=== PATIENT | female | born 1945 | race Caucasian/White ===

== ENCOUNTER 2017-05-05 03:54 | Outpatient (CLI) | payer MEDICARE | END 2017-05-05 03:55 | disposition home or self-care (01) | LOC: BICULT 03:54 | PROVIDERS: ATTEND Internal Medicine | DX: N63.10 Unspecified lump in the right breast, unspecified quadrant (principal) ==

== ENCOUNTER 2019-05-17 11:19 | Outpatient (CLI) | payer MEDICARE ==
--- NOTE | 2019-05-17 13:50 | MRI ---
MRI LUMBAR SPINE WITHOUT CONTRAST: HISTORY: Low back pain. Right hoffmann and hip pain. COMPARISON: None. FINDINGS: Slightly heterogeneous T1 marrow signal intensity of the lumbar vertebrae, likely due to senescent ch victorino. No fracture. No malalignment. No spondylolisthesis or spondylolysis. No significant STIR hyperintensity to suggest vertebral body edema or ligamentous injury Appropriate signal intensity of the paraspinal muscles and visualized solid organs. The conus medullaris terminates at the inferior aspect of L1. T12-L1: No significant central canal stenosis or significant neural foraminal narrowing. L1-L2: Mild loss of disc space height with minimal left and right paracentral disc bulges. No signifi cant central canal stenosis. Mild right neural foraminal narrowing. Left neural foramen is minimally narrowed. L2-L3: Adequate disc hydration. Minimal broad-based disc bulge, minimal ligament flavum thickening an d facet hypertrophy result in minimal central canal stenosis. Minimal encroachment upon both subarticular zones due to disc material. There is mass effect without obscuration of either traversin g L3 nerve root. Mild right foraminal narrowing. Mild to moderate left foraminal narrowing. Schmorl's node is noted at the inferior endplate of L2. L3-L4: Disc desiccation with mild loss of disc space height. No significant central canal stenosis. R ight neural foramen is patent. Mild left foraminal narrowing. L4-L5: Adequate disc hydration. No significant posterior disc abnormality. No significant central can al stenosis. There is a T1 intense, T2 isointense lesion in the right neural foramen. This lesion may be intrinsic to the foraminal right L4 nerve root. On axial images this lesion measures ap proximately 0.8 cm. Mild to moderate bilateral foraminal narrowing. L5-S1: Disc desiccation without significant loss of disc space height. Broad-based disc bulge minimal ly contacts the thecal sac. No significant central canal stenosis. Mild bilateral foraminal narrowing. IMPRESSION: Abnormal soft tissue signal intensity in the right neural foramen at L4-L5 which may be intrinsic to the foraminal right L4 nerve root. Findings may represent edematous change, however there is only mild to moderate foraminal narrowing. An intrinsic lesion cannot be excluded. Post contrast imaging i s recommended CODE T Transcribed Date/Time: 05/17/2019 2:16 PM
== END 2019-05-17 11:20 | disposition home or self-care (01) ==
LOC: MRI 11:19
PROVIDERS: ATTEND Physical Medicine & Rehabilitation
DX: M54.5 Low back pain (principal); M79.606 Pain in leg, unspecified; R53.1 Weakness; M48.061 Spinal stenosis, lumbar region without neurogenic claudication
CPT/HCPCS: 72148

== ENCOUNTER 2019-06-06 13:09 | Outpatient (CLI) | payer MEDICARE ==
--- NOTE | 2019-06-06 16:03 | MRI ---
MRI LUMBAR SPINE WITH AND WITHOUT CONTRAST: INDICATIONS: Followup to MRI of 05/17/2019, which revealed an extradural lesion on the right at L4-L5, extending i nto the right foramina at this level. FINDINGS: Exam again confirms abnormal mass-like signal in the spinal canal on the right at L4-L5, extending in to the right foramina. Post contrast images show significant rim enhancement. There is an internal ce ntral portion which does not enhance. Findings appear most consistent with sequestered disk material, probably originating from the L4-L5 disk with slight superior migration and extension into the right foramina. This does appear to displace the exiting right L4 nerve root. IMPRESSION: Abnormal signal seen in the spinal canal on the right at L4-L5, extending into the foramina appears t o represent sequestered disk fragment with superior extension from the L4-L5 disk and foraminal exten ora at this level on the right. POS: DIAMOND
[2019-06-06] MEDS ORDERED: Magnevist 469MG/ML 20 ML VIAL ONE (16:32)
== END 2019-06-06 13:10 | disposition home or self-care (01) ==
LOC: BICMRI 13:09
PROVIDERS: ATTEND Specialist
DX: M51.16 Intervertebral disc disorders with radiculopathy, lumbar region (principal); R93.7 Abnormal findings on diagnostic imaging of other parts of musculoskeletal system
CPT/HCPCS: 72158; A9579

== ENCOUNTER 2019-08-05 07:52 | Day surgery (SDC) | payer MEDICARE ==
[2019-08-04 09:59] VITALS: BMI 25.7
[2019-08-05 08:18] LABS: #Basophils 0.1 thou/uL (0.0-0.2); #Eosinphils 0.2 thou/uL (0.0-0.7); #Lymphocytes 3.5 thou/uL (1.20-3.40); #Monocytes 0.7 thou/uL (0.11-0.59); #Neutrophils 2.8 thou/uL (1.40-6.50); %Basophils 1.5 % (0.0-1.0); %Eosinophils 2.5 % (0.0-10.0); %Lymphocytes 47.9 % (21.0-51.0); %Monocytes 9.1 % (0.0-10.0); Hemoglobin 13.2 g/dL (12.0-16.0); Mean Corpuscular HGB CONC 31.7 g/dL (32.0-36.0); Mean Corpuscular Hemoglobin 28.4 pg (27.0-31.0); Mean Corpuscular Volume 89.5 fL (78.0-98.0); Mean Platelet Volume 7.2 fL (7.4-10.4); Platelet Count 296 thou/uL (130-400); RBC Distribution Width 12.3 % (11.5-14.5); Red Blood Cell (RBC) Count 4.65 mill/uL (4.20-5.40); White Blood Cell (WBC) Count 7.2 thou/uL (4.8-10.8)
[2019-08-05 08:24] LABS: INR-International Normal Ratio 0.9; Prothrombin Time 12.1 SEC (12.0-14.7)
[2019-08-05 08:25] LABS: PTT 28.1 SEC (22.9-36.1)
[2019-08-05 08:36] LABS: Anion Gap 12 mmol/L (10-20); BUN (Urea Nitrogen) 22 mg/dL (9.8-20.1); Calc. Creatinine Clearance 63 mL/min (70-130); Calcium 10.2 mg/dL (7.8-10.44); Carbon Dioxide 29 mmol/L (23-31); Chloride 105 mmol/L (98-107); Estimated GFR-MDRD 69; Glucose 109 mg/dL (83-110); Potassium 4.6 mmol/L (3.5-5.1); Sodium 141 mmol/L (136-145)
[2019-08-05] MEDS ORDERED: Sodium Chloride 0.9% 10 ML ONE (09:02)
[2019-08-05] MEDS ORDERED: Thrombin 5000 UNITS/5 ML VIAL ONE (09:02)
[2019-08-05] MEDS ORDERED: Rocuronium Bromide 10 MG/ML (10ML VIAL) ONE (09:19)
[2019-08-05] MEDS ORDERED: EPHEDRINE 25 MG/5 ML SYRINGE ONE (09:19)
[2019-08-05] MEDS ORDERED: Ondansetron PF 4 MG/2 ML Vial ONE (09:19)
[2019-08-05] MEDS ORDERED: Lidocaine 1% PF 5 ML VIAL ONE (09:19)
[2019-08-05] MEDS ORDERED: PHENYLEPHRINE-NS 100 MCG/ML 10 ML SYRINGE ONE (09:19)
[2019-08-05] MEDS ORDERED: PROPOFOL 200 MG/20 ML VIAL ONE (09:19)
[2019-08-05] MEDS ORDERED: Dexamethasone 20 MG/5 ML VIAL ONE (09:19)
[2019-08-05] MEDS ORDERED: Labetalol HCl 100 MG/20 ML VIAL ONE (09:19)
[2019-08-05] MEDS ORDERED: Ketorolac Tromethamine 30 MG/ML VIAL ONE (09:19)
[2019-08-05] MEDS ORDERED: Glycopyrrolate 0.2 MG/ML 5 ML SYRINGE ONE (09:19)
[2019-08-05] MEDS ORDERED: Fentanyl 250 MCG/5 ML VIAL ONE (09:47)
[2019-08-05] MEDS ORDERED: tiZANidine HCl 4 MG TAB PO PRN (12:50)
[2019-08-05] MEDS ORDERED: Morphine 2 MG/ML SYRINGE SLOW IVP PRN (12:50)
[2019-08-05] MEDS ORDERED: Ondansetron PF 4 MG/2 ML Vial IVP PRN (12:50)
[2019-08-05] MEDS ORDERED: Mag-Al 1200 mg/1200 mg/30 ML UDCUP PO PRN (12:50)
[2019-08-05] MEDS ORDERED: traMADol HCl 50 MG TAB PO PRN (12:50)
[2019-08-05] MEDS ORDERED: Bisacodyl 10 MG SUPP PR PRN (12:50)
[2019-08-05] MEDS ORDERED: Milk Of Magnesia 30 ML UDCUP PO PRN (12:50)
[2019-08-05] MEDS ORDERED: Acetaminophen 325 MG TAB PO PRN (12:50)
[2019-08-05] MEDS ORDERED: Acetaminophen/Codeine 30-300mg Tablet PO PRN (12:50)
[2019-08-05] MEDS ORDERED: Fleet Enema 133 ML BOT PR PRN (12:50)
[2019-08-05] MEDS ORDERED: Fentanyl 100 MCG/2 ML VIAL ONE ×2 (13:55→16:19)
--- NOTE | 2019-08-05 14:11 | OP ---
DATE OF PROCEDURE: 08/05/2019 LOCATION: OR-5. [employer]: Mariangel Franco PA-C. PREPROCEDURE DIAGNOSIS: Low back and right greater than left lower extremity pain with lumbar stenosis and lateral and far-lateral disk extrusion with compression of the exiting right L4 nerve root. PROCEDURE: 1. L4-L5 laminectomy, partial facetectomy and foraminotomy. 2. Right L4-L5 trans-facet diskectomy with decompression of the exiting right L4 nerve root. 3. Use of operative microscope for microdissection. DESCRIPTION OF PROCEDURE: After informed consent was obtained from the patient, the patient was brought to the OR. Proper patient, pause, and identification were carried out. The patient was then placed under excellent general endotracheal anesthesia and positioned prone on the OR table. All appropriate points were padded. We identified the L4-L5 dorsal spine laminae. A linear nicky was made over this region. This area was sterilely cleansed, prepared, and draped. Proper patient, pause, and identification were carried out. The wound was then opened with combination of sharp, monopolar, and blunt dissection of the L4-L5 segment exposed. L4-L5 localization confirmed our area of interest. We performed L4-L5 laminectomy, partial facetectomy and foraminotomy. We then brought the microscope and did a trans-facet diskectomy at the right L4-L5 segment with multiple disk fragments being removed from the lateral and far-lateral component to decompress the exiting right L4 nerve root. Copious irrigation occurred throughout. We maximized hemostasis. There was no spinal fluid leak. We assured freeing bilateral L4, the main tube and bilateral L5 nerve roots. The wound was then closed in anatomic layers following sprinkling of vancomycin powder. The patient emerged from anesthesia. Job ID: [id number]
[2019-08-05] MEDS: HYDROcodone/Acetaminophen 7.5/325 mg Tablet PO PRN (17:59)
[2019-08-05] MEDS: CEFAZOLIN 2 GM in Premix Bag 1 BAG IVPB SCH (18:00)
[2019-08-05] MEDS: Sodium Chloride 0.9% 1,000 ML IV SCH (18:01)
[2019-08-05] MEDS ORDERED: Magnesium Oxide 400 MG TAB PO SCH (21:00)
[2019-08-05] MEDS ORDERED: Estradiol 1 MG TAB PO SCH (21:00)
[2019-08-05] MEDS ORDERED: Amlodipine 5 MG TAB PO SCH (21:00)
[2019-08-06] MEDS: CEFAZOLIN 2 GM in Premix Bag 1 BAG IVPB SCH (00:13)
[2019-08-06] MEDS: HYDROcodone/Acetaminophen 7.5/325 mg Tablet PO PRN ×3 (00:16→10:51)
[2019-08-06] MEDS: Sodium Chloride 0.9% 1,000 ML IV SCH (03:44)
[2019-08-06] MEDS ORDERED: Levothyroxine Sodium 50 MCG TAB PO SCH (06:00)
[2019-08-06] MEDS ORDERED: metFORMIN 500 MG TAB PO SCH (08:00)
[2019-08-06] MEDS ORDERED: Lisinopril 20 MG TAB PO SCH (09:00)
[2019-08-06] MEDS ORDERED: FLU VACC TS2019-20(65YR UP)/PF 180 MCG/0.5 ML SYRINGE IM ONE (09:00)
[2019-08-06] MEDS ORDERED: Ubidecarenone 50 MG CAP PO SCH (09:00)
--- NOTE | 2019-08-06 09:26 | DIS ---
DATE OF ADMISSION: 08/05/2019 DATE OF DISCHARGE: 08/06/2019 Ms. Farrell was admitted to [facility] by Dr. Prosper Yuan on 08/05/2019 with subsequent discharge on 08/06/2019. ADMISSION DIAGNOSIS: Status post lumbar laminectomy. DISCHARGE DIAGNOSIS: Status post lumbar laminectomy. HOSPITAL COURSE: Ms. Farrell's hospital course was uncomplicated. Her pain was well tolerated and controlled with our typical oral and IV pain medication. No additional consults were ordered. She was discharged home in good condition with outpatient followup Job ID: [id number]
[2019-08-06 10:47] VITALS: BP 96/59; TEMP 98.4
== END 2019-08-06 12:30 | disposition home or self-care (01) ==
LOC: SDC 07:52 → SJJU 12:50 → SDC 08-06 12:30
PROVIDERS: ATTEND Surgery
PROC: 00NY0ZZ Release Lumbar Spinal Cord, Open Approach (ICD-10-PCS; principal; 2019-08-05)
PROC: 0SB20ZZ Excision of Lumbar Vertebral Disc, Open Approach (ICD-10-PCS; 2019-08-05)
PROC: 01NB0ZZ Release Lumbar Nerve, Open Approach (ICD-10-PCS; 2019-08-05)
DX: M48.061 Spinal stenosis, lumbar region without neurogenic claudication (principal); M51.16 Intervertebral disc disorders with radiculopathy, lumbar region; I10 Essential (primary) hypertension; E78.5 Hyperlipidemia, unspecified; E03.9 Hypothyroidism, unspecified; R73.03 Prediabetes; G47.30 Sleep apnea, unspecified; Z79.82 Long term (current) use of aspirin; Z79.84 Long term (current) use of oral hypoglycemic drugs; Z79.899 Other long term (current) drug therapy; Z91.048 Other nonmedicinal substance allergy status; Z99.89 Dependence on other enabling machines and devices
CPT/HCPCS: 63047; 76000; 80048; 85025; 85610; 85730; 90662; 93005; G0008; 36415; 90471; 93010; J0690; J1100; J1885; J2001; J2405; J2704; J3010; J3370; J3490